=== PATIENT | male | born 1995 | race Caucasian/White ===

== ENCOUNTER 2023-07-29 09:24 | Emergency (ER) | payer OTHER, SELFPAY ==
[2023-07-29 09:27] VITALS: BP 106/77; PULSE 97; RESP 19; TEMP 36.6; O2SAT 98; BMI 21.8
[2023-07-29 09:46] LABS: MANUAL DIFF FLAG NO
[2023-07-29 09:48] LABS: Basophils Percent Auto 0.4 % (0-2); Eosinophils Percent Auto 0.4 % (0-4); Hemoglobin 15.7 g/dl (14.0-18.0); Imm Gran Abs Auto 0.01 X10*3/uL (0.00-0.03); Imm Gran Pct Auto 0.2 % (0.0-0.4); Lymphocytes Absolute Auto 0.9 X10*3/uL (1.2-4.9); Lymphocytes Percent Auto 17.6 % (20-40); Mean Corpuscular HGB Conc 34.9 g/dl (31.0-36.0); Mean Corpuscular Hemoglobin 32.7 pg (27.0-33.0); Mean Corpuscular Volume 93.8 fL (80.0-98.0); Mean Platelet Volume 9.3 fL (9.4-12.4); Monocytes Absolute Auto 0.7 X10*3/uL (0.1-1.2); Neutrophils Absolute Auto 3.3 x10*3/uL (2.0-8.3); Neutrophils Percent Auto 67.4 % (45-73); Platelet Count 227 X10*3/uL (160-400); Red Cell Distribution Width 11.9 % (11.0-16.0); White Blood Count 4.9 X10*3/uL (4.8-10.8)
[2023-07-29 10:02] LABS: Alanine Aminotransferase 10 U/L (0-40); Albumin Level 4.5 g/dL (3.5-5.0); Alkaline Phosphatase 75 U/L (39-117); Anion Gap 12 (12-20); Aspartate Amino Transferase 15 U/L (5-37); Bilirubin Direct 0.2 mg/dL (0.0-0.5); Bilirubin Total 0.5 mg/dL (0.0-1.0); Blood Urea Nitrogen 10 mg/dL (9-16); Calcium 9.1 mg/dL (8.4-10.2); Carbon Dioxide 28 mmol/L (22-29); Chloride 106 mmol/L (96-108); Creatinine Clr Calc Pharmacy 119.8; Estimated Glomerular Filt Rate > 60; Glucose Random 98 mg/dL (60-115); Lipase 19 U/L (8-78); Sodium 142 mmol/L (135-145); Total Protein 7.2 g/dL (6.5-8.0)
[2023-07-29 10:40] LABS: Influenza A PCR NEGATIVE (Negative); Influenza B PCR NEGATIVE (Negative); Resp Syncy Virus RNA Qual PCR NEGATIVE (Negative); SARS COV2 PCR INHOUSE NEGATIVE (Negative)
--- NOTE | 2023-07-29 12:07 | ED_ITS ---
HPI - Abdominal Pain General Chief Complaint: Abdominal Pain Stated Complaint: Abd pain Time Seen by Provider: 07/29/23 12:04 Source: patient Mode of arrival: ambulatory Limitations: no limitations History of Present Illness ED Provider: Dr. Jeffery Godoy HPI narrative: 27-year-old male recently treated for cellulitis 1 month prior who presents emergency department for evaluation of nausea, abdominal pain and diarrhea. The patient states that his 2 days prior to evaluation. Patient states that he has diffuse sharp, achy abdominal pain which is been constant. The pain is 7/10 at its worst. Patient has had 4-5 episodes of diarrhea per day. He states he has had nothing to eat in the last 24 hours and had no diarrhea today. States the diarrhea is watery with no blood in the diarrhea. He has had nausea with no vomiting. He has had loss of appetite. States that he feels fatigued, he has myalgias and arthralgias. He denied fever or chills. The patient had no recent travel but has been on antibiotics in the last month for cellulitis. This is 1st episode of a diarrheal illness. There were no other people around him that are sick with a diarrheal illness. Related Data Previous Rx's ?Medication ?Instructions ?Recorded ondansetron 4 mg disintegrating 4 mg PO Q6-8H PRN nausea and 07/29/23 tablet vomiting #14 tabs Allergies Allergy/AdvReac Type Severity Reaction Status Date / Time No Known Allergies Allergy Verified 07/29/23 09:28 Review of Systems Review of Systems Yes all other systems are reviewed and are negative [facility] Past Medical History [facility] Narrative: Past medical history: Cellulitis 1 month prior. Surgical history: Appendectomy 2015. Social history: He does smoke cigarettes. He drinks alcohol 2 times a week. Social History Social History Advance Directives: No Physical Exam ED Vital Signs: Vital Signs - 24 hr 07/29/23 09:27 Temperature 98 F Pulse Rate 97 Respiratory Rate 19 Blood Pressure 106/77 Pulse Oximetry 98 Oxygen Delivery Method Room Air BMI result Body Mass Index 21.8 Vital signs were normal Exam: General: Awake, alert in no distress Head: Normocephalic, atraumatic EENT: PERRL, Lids normal, sclera normal, conjunctiva normal, nose normal , ears normal, throat without erythema or exudates Neck: Supple, no adenopathy Lung: breath sounds symmetric, no wheezing, rales or rhonchi Chest: symmetric movement, nontender Heart: regular rate and rhythm, normal S1, S2 no murmurs or rubs Abdomen: Soft, nondistended, normoactive bowel sounds, moderate diffuse tenderness with no localizing tenderness. Back: no vertebral tenderness, no CVAT Extremities: no deformities, moves all extremities symmetrically Neuro: Awake, alert, oriented, normal speech, moves all extremities symmetrically Psych: Pleasant, cooperative Medical Decision Making Medical Decision Making [facility] Narrative: 27-year-old male with no significant past medical history, appendectomy 2015 who presents emergency department for evaluation of 3 days of diffuse abdominal pain, 4-5 loose, watery stools per day, loss of appetite, nausea with no vomiting, myalgias and fatigue. Patient was on antibiotics 1 month prior for cellulitis. He has had no recent travel. He has not aware of anyone who is ill around him. He states he did have Giardia 1 time in the past which she believes he got from swimming in a flower. Vital signs were normal. Physical examination revealed diffuse abdominal tenderness with no localizing tenderness. Differential diagnosis: ?Includes but is not limited to viral illness, food poisoning, C difficile colitis, IBS, IBD Following evaluation was ordered: CBC, CMP, COVID-19, influenza, RSV, C diff PCR, GI panel Patient was initially treated with the following: Toradol 15 mg IV, Zofran 4 mg IV and normal saline x1 L Course: 12:29 My interpretation patient's laboratory evaluation is as follows: CBC was normal. CMP was normal. Lipase was normal. COVID-19, influenza and RSV were negative 13:28 Patient is feeling significantly better after the above treatment. Patient was not able to give us a stool sample therefore I doubt that he has C difficile colitis. Patient's symptoms are consistent with acute viral illness causing diarrhea and abdominal pain. Patient's symptoms will be treated with Tylenol, ibuprofen and Zofran 4 mg ODT q.6 hours as needed for nausea and vomiting. He was advised to take Imodium for his diarrhea to stay on a LOPEZ diet for the next 24 hours. He was given printed and verbal instructions and discharged home. Admission/Observation Consideration of admission/observation: Escalation of care including admission/observation considered Lab Data [facility] Lab Attestation statement: I reviewed the patient's lab results. 07/29/23 09:41 07/29/23 09:41 Labs: Lab Results 07/29/23 Range/Units 09:41 WBC 4.9 (4.8-10.8) X10*3/uL RBC 4.80 (4.60-5.80) X10*6/uL Hgb 15.7 (14.0-18.0) g/dl Hct 45.0 (42.0-52.0) % MCV 93.8 (80.0-98.0) fL MCH 32.7 (27.0-33.0) pg MCHC 34.9 (31.0-36.0) g/dl RDW 11.9 (11.0-16.0) % Plt Count 227 (160-400) X10*3/uL MPV 9.3 L (9.4-12.4) fL Immature Gran % (Auto) 0.2 (0.0-0.4) % Neut % (Auto) 67.4 (45-73) % Lymph % (Auto) 17.6 L (20-40) % Heard % (Auto) 14.0 H (2-11) % Eos % (Auto) 0.4 (0-4) % Baso % (Auto) 0.4 (0-2) % Lymph # (Auto) 0.9 L (1.2-4.9) X10*3/uL Heard # (Auto) 0.7 (0.1-1.2) X10*3/uL Eos # (Auto) 0.0 (0.0-0.4) X10*3/uL Baso # (Auto) 0.0 (0.0-0.2) X10*3/uL Abs Immat Gran (auto) 0.01 (0.00-0.03) X10*3/uL Absolute Neuts (auto) 3.3 (2.0-8.3) x10*3/uL Absolute Nucleated RBC 0.000 (0.0-0.012) X10*3/uL Nucleated RBC % (auto) 0.0 (0.0-0.2) /100WBC Sodium 142 (135-145) mmol/L Potassium 4.0 (3.3-5.1) mmol/L Chloride 106 (96-108) mmol/L Carbon Dioxide 28 (22-29) mmol/L Anion Gap 12 (12-20) BUN 10 (9-16) mg/dL Creatinine 1.01 (0.5-1.4) mg/dL Estim Creat Clear Calc 119.8 Estimated GFR > 60 Random Glucose 98 (60-115) mg/dL Calcium 9.1 (8.4-10.2) mg/dL Total Bilirubin 0.5 (0.0-1.0) mg/dL Direct Bilirubin 0.2 (0.0-0.5) mg/dL AST 15 (5-37) U/L ALT 10 (0-40) U/L Alkaline Phosphatase 75 (39-117) U/L Total Protein 7.2 (6.5-8.0) g/dL Albumin 4.5 (3.5-5.0) g/dL Lipase 19 (8-78) U/L Influenza Type A (PCR) NEGATIVE (Negative) Influenza Type B (PCR) NEGATIVE (Negative) RSV RNA Qual (PCR) NEGATIVE (Negative) SARS-CoV-2 RNA (RT-PCR) NEGATIVE (Negative) Independent Historian Clinical information obtained from an independent historian. History obtained from or confirmed by: Parent Prescription Management I considered prescription management with: Other (Antiemetics) Medications Administered Discontinued Medications Generic Name Dose Route Start Last Admin Trade Name Freq PRN Reason Stop Dose Admin Sodium Chloride 1,000 mls @ 999 mls/hr 07/29/23 12:24 07/29/23 12:53 Ns IV 07/29/23 13:24 999 mls/hr .Q1H1M STA Administration Ketorolac Tromethamine 15 mg 07/29/23 12:24 07/29/23 12:53 Ketorolac Tromethamine 15 Mg/Ml Vial IVPUSH 07/29/23 12:25 15 mg ONCE STA Administration Ondansetron HCl 4 mg 07/29/23 12:24 07/29/23 12:53 Ondansetron Hcl 4 Mg/2 Ml Vial IVPUSH 07/29/23 12:25 4 mg ONCE ONE Administration Discharge Plan Discharge Clinical Impression: Viral syndrome, Nausea Abdominal pain Qualifiers: Abdominal location: generalized Qualified Code(s): R10.84 - Generalized abdominal pain Diarrhea Qualifiers: Diarrhea type: infectious Qualified Code(s): A09 - Infectious gastroenteritis and colitis, unspecified Patient Disposition: Home, Self-Care Instructions: Acute Diarrhea (ED), Viral Syndrome (ED) Additional Instructions: Your blood work was unremarkable. Your symptoms and exam are consistent with a viral infection causing your abdominal pain, nausea, body aches and diarrhea. Take ibuprofen 200 mg pills, 2 pills every 6 hours as needed for pain or fever. Take Tylenol (acetaminophen) 500 mg pills, 2 pills every 6 hours as needed for pain or fever. Take Zofran ODT 4 mg pills, 1 pill dissolved in your mouth every 8 hours as needed for nausea and vomiting. For diarrhea I want you to take Imodium 2 mg pills. ?Take 2 pills after the 1st loose, diarrheal stool then 1 pill after each loose, diarrheal stool up to 6 pills per day. ?This usually stops diarrhea within 24 hours. For the next 24 hours, stay on a LOPEZ diet (bananas, rice, applesauce, tea and toast). Increase your fluid intake to prevent dehydration Follow-up with your doctor in 2 days. Please return to the emergency department if your symptoms get worse or if you develop any symptoms that are concerning to you. Prescriptions: New ondansetron 4 mg tablet,disintegrating 4 mg PO Q6-8H PRN (Reason: nausea and vomiting) Qty: 14 0RF Print Language: Romansh
[2023-07-29] MEDS: ondansetron HCL 4 MG/2 ML VIAL IVPUSH (12:53)
[2023-07-29] MEDS: Ketorolac Tromethamine 15 MG/ML VIAL IVPUSH (12:53)
[2023-07-29] MEDS: 0.9 % Sodium Chloride 1,000 ML 999 ML IV ×2 (12:53→13:52)
--- NOTE | 2023-07-29 13:39 | PC.NURSE ---
UA obtained/sent to lab.
--- NOTE | 2023-07-29 13:39 | PC.NURSE ---
a&ox4. vss and up to date. pt presents to ED w/ generalized abd pain/n/v/d x 2 days. abd nontender w/ palpation. denies fever/chills. 20gIV placed in the left AC - IVF/medication administered per provider order. no sob/wob noted. respirations even and unlabored. plan of care ongoing. call gray placed within reach.
[2023-07-29 13:43] LABS: Appearance Urine Clear; Color Urine Yellow; Glucose Urine UA Negative (Negative); Leukocyte Esterase Urine Negative (Negative); Nitrite Urine Negative (Negative); Specific Gravity - Urine 1.015 (1.005-1.025); Urine Blood Negative (Negative); Urine Ketones Trace mg/dL (Negative); Urine Protein Negative (Neg-Trace)
[2023-07-29 13:55] VITALS: BP 88/49; PULSE 53; RESP 16; TEMP 37.1; O2SAT 100
--- NOTE | 2023-07-29 13:56 | PC.NURSE ---
Pt's disch vs reflected a low bp. aware. 1 l ns hung
[2023-07-29 14:20] VITALS: BP 98/62
[2023-07-29 14:21] VITALS: BP 98/62; PULSE 53; RESP 16; TEMP 37.1; O2SAT 100
== END 2023-07-29 14:22 | disposition home or self-care (01) ==
PROVIDERS: Physician Assistant Medical; Emergency Provider Emergency Medicine Emergency Medical Services
DX: B34.9 Viral infection, unspecified (principal); A09 Infectious gastroenteritis and colitis, unspecified; R10.84 Generalized abdominal pain; R11.0 Nausea; Z03.818 Encounter for observation for suspected exposure to other biological agents ruled out
CPT/HCPCS: 0241U; 36415; 80048; 80076; 81003; 83690; 85025; 96361; 96374; 96375; 99284; 99285; J1885; J2405